=== PATIENT | male | born 1995 | race Caucasian/White ===

== ENCOUNTER 2024-11-15 07:33 | Emergency (ER) | payer OTHER ==
[~2024-11-15] VITALS: Ht 165.1 cm; Wt 70.0 kg
[2024-11-15 07:41] VITALS: BP 110/69; PULSE 70; RESP 18; TEMP 97.5; O2SAT 95
[2024-11-15] MEDS ORDERED: ARIP960S IM (07:45)
[2024-11-15] MEDS ORDERED: LIDO-57 TP (07:55)
[2024-11-15] MEDS ORDERED: ACET-3385 PO (07:55)
[2024-11-15] MEDS ORDERED: IBUP-1492 PO (07:55)
[2024-11-15] MEDS: IBUPROFEN 600 MG TABLET PO ONE (08:09)
[2024-11-15] MEDS: LIDOCAINE 5% TRANSDERMAL PATCH TD ONE (08:09)
== END 2024-11-15 08:38 | disposition home or self-care (01) ==
LOC: EMS 07:35
DX: S29.012A Strain of muscle and tendon of back wall of thorax, initial encounter (principal); F20.9 Schizophrenia, unspecified; X58.XXXA Exposure to other specified factors, initial encounter; Y93.89 Activity, other specified; Y92.89 Other specified places as the place of occurrence of the external cause; Y99.8 Other external cause status
CPT/HCPCS: 99283; Z7502